=== PATIENT | female | born 1975 | race African-American/Black ===

== ENCOUNTER 2016-11-22 16:01 | Emergency (ER) | payer OTHER ==
[~2016-11-22] VITALS: Ht 167.6 cm; Wt 80.0 kg
[2016-11-22] MEDS ORDERED: DIPHENHYDRAMINE 50MG CAPSULE PO ONE (17:15)
[2016-11-22] MEDS ORDERED: KETOROLAC 60MG/2ML VIAL IM ONE (17:15)
[2016-11-22 18:12] VITALS: BP 154/101
== END 2016-11-22 18:30 | disposition home or self-care (01) ==
LOC: ER 18:27
DX: T78.40XA Allergy, unspecified, initial encounter (principal); F17.200 Nicotine dependence, unspecified, uncomplicated
CPT/HCPCS: 96372; 99283; J1885; Q0163

== ENCOUNTER 2016-11-26 16:02 | Emergency (ER) | payer OTHER ==
[~2016-11-26] VITALS: Ht 162.6 cm; Wt 70.0 kg
[2016-11-26 20:26] VITALS: BP 141/91
[2016-11-26] MEDS ORDERED: ONDANSETRON 4MG ODT PO ONE (20:45)
[2016-11-26] MEDS ORDERED: METHYLPREDNISOLONE SOD SUCC 125 MG/2 ML VIAL IM ONE (20:45)
[2016-11-26] MEDS ORDERED: FAMOTIDINE 20MG TABLET PO ONE (22:15)
[2016-11-26] MEDS ORDERED: DIPHENHYDRAMINE 25MG CAPSULE PO ONE (22:15)
== END 2016-11-26 22:47 | disposition home or self-care (01) ==
LOC: ER 16:02
DX: T78.40XA Allergy, unspecified, initial encounter (principal); S39.82XA Other specified injuries of lower back, initial encounter; M25.551 Pain in right hip; F17.210 Nicotine dependence, cigarettes, uncomplicated; Z98.890 Other specified postprocedural states; X58.XXXA Exposure to other specified factors, initial encounter; W01.0XXA Fall on same level from slipping, tripping and stumbling without subsequent striking against object, initial encounter; Y93.89 Activity, other specified; Y92.89 Other specified places as the place of occurrence of the external cause
CPT/HCPCS: 72220; 73502; 81025; 96372; 99284; J2930; Q0162; Z7610; Q0163

== ENCOUNTER 2017-06-23 10:29 | Emergency (ER) | payer OTHER ==
[~2017-06-23] VITALS: Ht 167.6 cm; Wt 69.0 kg
[2017-06-23 10:30] VITALS: BP 140/98
== END 2017-06-23 12:35 | disposition left against medical advice (07) ==
LOC: ER 11:14
DX: K08.89 Other specified disorders of teeth and supporting structures (principal); Z53.21 Procedure and treatment not carried out due to patient leaving prior to being seen by health care provider

== ENCOUNTER 2017-10-26 11:32 | Emergency (ER) | payer MEDICAID, OTHER ==
[~2017-10-26] VITALS: Ht 165.1 cm; Wt 62.2 kg
[2017-10-26 11:59] VITALS: BP 135/94
[2017-10-26 13:13] LABS: BASOPHILS % 0.6 % (0.0-2.0); EOSINOPHILS % 1.1 % (0.0-5.0); HEMATOCRIT. 36.5 % (36.0-48.0); HEMOGLOBIN. 12.5 g/dL (12.0-16.0); LYMPHOCYTES % 42.7 % (20.0-50.0); MEAN CORPUSCULAR HEMOGLOBIN 35.8 pg (28.0-32.0); MEAN CORPUSCULAR VOLUME 104.1 fL (81.0-99.0); MEAN PLATELET VOLUME 8.1 fl (7.4-10.4); MONOCYTES % 10.3 % (2.0-8.0); NEUTROPHILS % 45.3 % (40.0-76.0); PLATELET 198 x1000/uL (130-400); RED CELL DISTRIBUTION WIDTH 13.6 % (11.6-14.6)
[2017-10-26 13:14] LABS: PROTHROMBIN TIME 10.7 sec (9.4-11.6)
[2017-10-26 13:16] LABS: CHLORIDE 103 mEq/L (98-107)
[2017-10-26 13:20] LABS: ETHANOL BLOOD 65 mg/dL
[2017-10-26 13:29] LABS: HCG SCREEN NEGATIVE
== END 2017-10-26 19:45 | disposition left against medical advice (07) ==
LOC: ER 12:20
DX: R10.13 Epigastric pain (principal); R10.2 Pelvic and perineal pain; N93.9 Abnormal uterine and vaginal bleeding, unspecified; R19.7 Diarrhea, unspecified
CPT/HCPCS: 36415; 80053; 83690; 84703; 85025; 85610; 99284; G0482

== ENCOUNTER 2019-04-06 20:13 | Emergency (ER) | payer MEDICAID ==
[~2019-04-06] VITALS: Ht 167.6 cm; Wt 91.0 kg
[2019-04-06] MEDS ORDERED: METHOCARBAMOL 750MG TABLET PO SCH (22:15)
[2019-04-06 23:48] VITALS: BP 121/81
== END 2019-04-06 23:49 | disposition home or self-care (01) ==
LOC: ER 20:13
DX: S16.1XXA Strain of muscle, fascia and tendon at neck level, initial encounter (principal); S76.011A Strain of muscle, fascia and tendon of right hip, initial encounter; Z98.890 Other specified postprocedural states; X58.XXXA Exposure to other specified factors, initial encounter; Y93.89 Activity, other specified; Y92.89 Other specified places as the place of occurrence of the external cause; Y99.8 Other external cause status
CPT/HCPCS: 73502; 99283

== ENCOUNTER 2019-08-09 04:09 | Emergency (ER) | payer MEDICAID ==
[~2019-08-09] VITALS: Ht 167.6 cm; Wt 86.0 kg
[2019-08-09 04:22] VITALS: BP 126/73
== END 2019-08-09 08:04 | disposition left against medical advice (07) ==
LOC: ER 05:54
DX: Z53.21 Procedure and treatment not carried out due to patient leaving prior to being seen by health care provider (principal)

== ENCOUNTER 2025-01-25 13:38 | Emergency (ER) | payer MEDICAID ==
[~2025-01-25] VITALS: Ht 167.6 cm; Wt 78.0 kg
[2025-01-25 13:44] VITALS: O2SAT 97
[2025-01-25 13:58] VITALS: BP 133/84; PULSE 112; RESP 16; TEMP 36.9; O2SAT 98
[2025-01-25] MEDS ORDERED: TOPUD MT (17:20)
[2025-01-25] MEDS ORDERED: IBUP-1525 MT (17:20)
[2025-01-25] MEDS: IBUPROFEN 800MG TABLET PO ONE (17:30)
[2025-01-25] MEDS: ACETAMINOPHEN 325MG TABLET PO ONE (17:30)
== END 2025-01-25 18:25 | disposition home or self-care (01) ==
LOC: ER 13:38
DX: S20.212A Contusion of left front wall of thorax, initial encounter (principal); Z98.890 Other specified postprocedural states; J45.909 Unspecified asthma, uncomplicated; W18.30XA Fall on same level, unspecified, initial encounter; Y93.89 Activity, other specified; Y92.89 Other specified places as the place of occurrence of the external cause; Y99.8 Other external cause status
CPT/HCPCS: 71101; 81025; 99283